=== PATIENT | male | born 2000 ===

== ENCOUNTER 2021-12-14 20:58 | Emergency (ER) | payer OTHER ==
[2021-12-14 21:20] VITALS: BP 120/64; PULSE 100; RESP 18; TEMP 98
--- NOTE | 2021-12-14 22:18 | ED ---
General Adult HPI - General Chief complaint: Recheck/Abnormal Lab/Rx Stated complaint: Covid test Source: patient, RN notes reviewed Mode of arrival: ambulatory - History of Present Illness Initial comments: 21-year-old male presents to the emergency department requesting a Covid test. Patient states he is an exchanged student from [place] studying in [place] and has been in the [place] therefore is required to test to reenter the country. He denies any symptoms or known exposures. - Related Data Allergies Allergy/AdvReac Type Severity Reaction Status Date / Time No Known Allergies Allergy Verified 12/14/21 21:20 Review of Systems ROS Statement: Those systems with pertinent positive or pertinent negative responses have been documented in the HPI. ROS Other: All systems not noted in ROS Statement are negative. Past Medical History Past Medical History: No Reported History History of Any Multi-Drug Resistant Organisms: None Reported Past Surgical History: No Surgical Hx Reported Past Psychological History: No Psychological Hx Reported Smoking Status: Never smoker Past Alcohol Use History: None Reported Past Drug Use History: None Reported General Exam Limitations: no limitations (Well-developed, well-nourished male in no acute distress. Initial temperature 98.0, pulse 100, respirations 18, blood pressure 120/64, pulse ox 98% on room air.) General appearance: alert, in no apparent distress ENT exam: Present: normal exam, normal oropharynx, mucous membranes moist Respiratory exam: Present: normal lung sounds bilaterally. Absent: respiratory distress, wheezes, rales, rhonchi, stridor Cardiovascular Exam: Present: regular rate, normal rhythm, normal heart sounds. Absent: systolic murmur, diastolic murmur, rubs, gallop, clicks GI/Abdominal exam: Present: soft, normal bowel sounds. Absent: distended, tenderness, guarding, rebound, rigid Neurological exam: Present: alert, oriented X3, CN II-XII intact Psychiatric exam: Present: normal affect, normal mood Skin exam: Present: warm, dry, intact, normal color. Absent: rash Course Vital Signs 12/14/21 21:17 Temperature 98 F Pulse Rate 100 Respiratory 18 Rate Blood Pressure 120/64 O2 Sat by Pulse 98 Oximetry Medical Decision Making - Medical Decision Making 21-year-old male with no significant past medical history presents to the emergency department requesting a Covid test in order to cross the border into [place]. Upon exam, patient is well-appearing and in no acute distress. His physical exam findings are unremarkable. He does not have any Covid symptoms, however did test positive. Results were discussed with patient. In consultation with my attending provider, Dr. Alexander, patient was counseled on anticipated expectation of quarantine plan upon arrival into [place]. Follow-up care and return parameters were discussed with patient. He verbalizes understanding and agrees with this plan. - Lab Data Lab Results 12/14/21 Range/Units 21:22 Coronavirus (PCR) Detected A (Not Detectd) Disposition Clinical Impression: Lab test positive for detection of COVID-19 virus Disposition: HOME SELF-CARE Condition: Stable Instructions (If sedation given, give patient instructions): Coronavirus Disease 2019 (COVID-19) Additional Instructions: Quarantine as required in [place]. If you develop any shortness of breath, difficulty breathing, or chest pain, go to the nearest emergency room. Is patient prescribed a controlled substance at d/c from ED?: No Referrals: None,Stated [Primary Care Provider] - 1-2 days Time of Disposition: 22:18
== END 2021-12-14 22:24 | disposition home or self-care (01) ==
LOC: EC 20:58
DX: U07.1 COVID-19 (principal)
CPT/HCPCS: 87635; 99282